=== PATIENT | male | born 1985 | race Two or more races ===

== ENCOUNTER 2020-04-18 04:57 | Emergency (ER) | payer SELFPAY ==
[~2020-04-18] VITALS: Ht 177.8 cm; Wt 90.7 kg
[2020-04-18 05:06] VITALS: BP 143/91
== END 2020-04-18 05:51 | disposition left against medical advice (07) ==
LOC: ER 04:57
DX: R07.81 Pleurodynia (principal); Z53.21 Procedure and treatment not carried out due to patient leaving prior to being seen by health care provider
CPT/HCPCS: 93005